=== PATIENT | female | born 1945 | race Caucasian/White ===

== ENCOUNTER 2017-10-18 14:06 | Emergency (ER) | payer MEDICARE ==
[2017-10-18 15:37] VITALS: BP 153/102
--- NOTE | 2017-10-18 20:22 | UC ---
General HPI - HPI Summary HPI Summary: 72 yo WF h/o HTN c/o fatigue and tiredness x 3 days straight where she is sleeping most of the day. Denies f/cn/v/d but urine is dark, and she is recovering from the flu 2 weeks ago - History of Current Complaint Chief Complaint: UCGeneralIllness Stated Complaint: FATIGUED Time Seen by Provider: 10/18/17 18:29 Hx Obtained From: Patient, Family/Filter Helper Onset/Duration: Sudden Onset, Gradual Onset Onset Severity: Moderate Pain Intensity: 0 - Allergy/Home Medications Allergies/Adverse Reactions: Allergies Allergy/AdvReac Type Severity Reaction Status Date / Time No Known Allergies Allergy Verified 10/18/17 15:37 Home Medications: Home Medications Lisinopril TAB* [Prinivil TAB 10 MG*] 10 mg PO DAILY 10/18/17 [History Confirmed 10/18/17] PMH/Surg Hx/FS Hx/Imm Hx Previously Healthy: Yes Cardiovascular History: Hypertension - Surgical History Surgical History: None Surgery Procedure, Year, and Place: denies - Social History Alcohol Use: Rare Substance Use Type: None Smoking Status (MU): Former Smoker Length of Time of Smoking/Using Tobacco: 25 years When Did the Patient Quit Smoking/Using Tobacco: 26 years ago Review of Systems Constitutional: Fatigue, Other - lethargy Skin: Negative Eyes: Negative ENT: Negative Respiratory: Negative Cardiovascular: Negative Gastrointestinal: Negative Genitourinary: Negative Motor: Negative Neurovascular: Negative Musculoskeletal: Negative Neurological: Negative Psychological: Negative All Other Systems Reviewed And Are Negative: Yes Physical Exam Triage Information Reviewed: Yes Appearance: No Pain Distress Vital Signs: Initial Vital Signs Temp 37.4 C 10/18/17 15:31 Pulse 91 10/18/17 15:31 Resp 18 10/18/17 15:31 BP 153/102 10/18/17 15:31 Pulse Ox 99 10/18/17 15:31 Eye Exam: Normal ENT Exam: Other - Dry mucous membranes Dental Exam: Normal Neck exam: Normal Neck: Positive: 1 Respiratory Exam: Normal Cardiovascular Exam: Normal Cardiovascular: Positive: RRR Abdominal Exam: Normal Abdomen Description: Positive: Soft, Other: - NO suprapubic tenderness. Negative: CVA Tenderness (R), CVA Tenderness (L), Distended, Guarding Musculoskeletal Exam: Normal Neurological Exam: Normal Psychological Exam: Normal Skin Exam: Normal Course/Dx - Course Course Of Treatment: UTI probably evolved from decreased PO hydration from recent flu and oliguria from being behind fluids in general. Macrobid BID for occult UTI- positive UA with nitrites and blood. advised copious hydration - Differential Dx - Multi-Symptom Differential Diagnoses: Urinary Tract Infection Provider Diagnoses: UTI. Cystitis. Fatigue Discharge - Discharge Plan Condition: Stable Disposition: HOME Prescriptions: Nitrofurantoin Macrocrystal [Nitrofurantoin] 100 mg PO BID 10 Days #20 capsule Patient Education Materials: Urinary Tract Infection in Women (ED) Referrals: Abi Shultz MD [Primary Care Provider] - Additional Instructions: as tolerated
== END 2017-10-18 20:32 | disposition home or self-care (01) ==
LOC: UCEAST 14:06
DX: N39.0 Urinary tract infection, site not specified (principal); N30.90 Cystitis, unspecified without hematuria; R53.83 Other fatigue; Z87.891 Personal history of nicotine dependence; I10 Essential (primary) hypertension
CPT/HCPCS: 81003; 87086; 87502; 99212; G0463

== ENCOUNTER 2019-08-20 13:51 | Emergency (ER) | payer MEDICARE ==
[2019-08-20 14:12] VITALS: BP 125/84
--- NOTE | 2019-08-20 15:52 | UC ---
Upper Extremity HPI - HPI Summary HPI Summary: 74 year old female with no prior injuries, presents after falling yesterday, handing with outstretched hand against wall. + pain between fingers with increased swelling, bruising. Pain moving 5th finger. Denies numbness, tingling. Decreased ROM of 5th finger. no loss of sensation. left hand - History of Current Complaint Chief Complaint: UCUpperExtremity Stated Complaint: FINGER INJURY Time Seen by Provider: 08/20/19 15:08 Hx Obtained From: Patient ?: No Severity Initially: Moderate Severity Currently: Moderate Pain Intensity: 5 Pain Scale Used: 0-10 Numeric Location Of Pain: Is Discrete @ - 5th finger Aggravating Factor(s): Movement Alleviating Factor(s): Rest Associated Signs And Symptoms: Positive: Swelling, Redness, Bruising. Negative : Weakness, Numbness/Tingling - Allergies/Home Medications Allergies/Adverse Reactions: Allergies Allergy/AdvReac Type Severity Reaction Status Date / Time lisinopril AdvReac See Comment Verified 08/20/19 14:14 Home Medications: Home Medications Losartan Potassium 50 mg PO DAILY 08/20/19 [History Confirmed 08/20/19] Multivitamin [Multivitamins] 1 tab PO DAILY 08/20/19 [History Confirmed 08/20/19 ] PMH/Surg Hx/FS Hx/Imm Hx Previously Healthy: Yes - Surgical History Surgical History: None Surgery Procedure, Year, and Place: denies - Family History Known Family History: Positive: Non-Contributory - Social History Alcohol Use: Rare Substance Use Type: None Smoking Status (MU): Former Smoker Length of Time of Smoking/Using Tobacco: 25 years When Did the Patient Quit Smoking/Using Tobacco: 26 years ago Review of Systems All Other Systems Reviewed And Are Negative: Yes Constitutional: Positive: Negative Neurovascular: Positive: Negative. Negative: Decreased Sensation, Decreased Pulses Musculoskeletal: Positive: Arthralgia, Decreased ROM, Edema, Myalgia. Negative : Calf Tenderness Neurological: Positive: Negative Is Patient Immunocompromised?: No Physical Exam Triage Information Reviewed: Yes Appearance: Well-Appearing, No Pain Distress, Well-Nourished Vital Signs: Initial Vital Signs Temp 97.9 F 08/20/19 14:07 Pulse 82 08/20/19 14:07 Resp 18 08/20/19 14:07 BP 125/84 08/20/19 14:07 Pulse Ox 97 08/20/19 14:07 Vital Signs Reviewed: Yes Eyes: Positive: Conjunctiva Clear ENT: Positive: Hearing grossly normal Musculoskeletal: Positive: Edema @ - 5th MCP with ecchymosis., Other: - pulses 2 + rad, ulnar. 5th, 4th fingers with decreased ROM of DIP, PIP,, MCP due to pain. SITLT, full PROM of all other fingers, wrist. no elbow pain, no pain with supination, pronation, no scaphoid tenderness. Neurological: Positive: Alert, Other: - SITLT distal to left wrist. Psychological Exam: Normal Psychological: Positive: Normal Response To Family Skin: Positive: Other - no open wounds, sores. Negative: Rashes, Breakdown Upper Extremity Course/Dx - Course Course Of Treatment: Sprain, hand - Keep splint on at all times to prevent re-injury - Follow up with orthopedics within 5-7 days - Motrin/ Tylenol as needed for pain, swelling - Keep area elevated, iced - Return for numbness, tingling, decreased sensation, increased pain. - Differential Dx/Diagnosis Differential Diagnosis/HQI/PQRI: Strain, Sprain Provider Diagnosis: Sprain of hand, left Discharge ED - Sign-Out/Discharge Documenting (check all that apply): Patient Departure All imaging exams completed and their final reports reviewed: Yes - Discharge Plan Condition: Good Disposition: HOME Patient Education Materials: Sprain (ED) Referrals: Abi Shultz MD [Primary Care Provider] - Ivet Alexander MD [Medical Doctor] - Additional Instructions: Sprain, hand - Keep splint on at all times to prevent re-injury - Follow up with orthopedics within 5-7 days - Motrin/ Tylenol as needed for pain, swelling - Keep area elevated, iced - Return for numbness, tingling, decreased sensation, increased pain. - Billing Disposition and Condition Condition: GOOD Disposition: Home
== END 2019-08-20 15:50 | disposition home or self-care (01) ==
LOC: UCEAST 13:51
DX: S63.92XA Sprain of unspecified part of left wrist and hand, initial encounter (principal); W22.09XA Striking against other stationary object, initial encounter; Y92.9 Unspecified place or not applicable; Z88.8 Allergy status to other drugs, medicaments and biological substances; Z87.891 Personal history of nicotine dependence
CPT/HCPCS: 99211; G0463